=== PATIENT | female | born 1945 | race Two or more races ===

== ENCOUNTER 2018-03-09 11:06 | Emergency (ER) | payer SELFPAY ==
--- NOTE | 2018-03-09 11:38 | ED ---
Back Pain - History of Current Complaint Chief Complaint: EDBackInjuryPain Stated Complaint: FLANK PAIN Time Seen by Provider: 03/09/18 11:34 Pain Intensity: 0 PMH/Surg Hx/FS Hx/Imm Hx Infectious Disease History: No Infectious Disease History: Denies: Traveled Outside the [place] in Last 30 Days Physical Exam Vital Signs On Initial Exam: Initial Vitals Temp Pulse Resp BP Pulse Ox 98 F 88 16 142/67 99 03/09/18 11:10 03/09/18 11:10 03/09/18 11:10 03/09/18 11:10 03/09/18 11:10 Diagnostics - Vital Signs Vital Signs Temp Pulse Resp BP Pulse Ox 03/09/18 11:10 98 F 88 16 142/67 99 - Laboratory Lab Statement: Any lab studies that have been ordered have been reviewed, and results considered in the medical decision making process. Discharge - Discharge Plan Referrals: No Primary Care Phys,NOPCP [Primary Care Provider] - - Attestation Statements Document Initiated by Scribe: Yes
--- NOTE | 2018-03-09 11:43 | ED ---
Lower Extremity - HPI Summary HPI Summary: The pt is a 73 y/o female presenting to [facility] c/o of LLE pain since 1 week ago. The pt who only speaks Persian is a accompanied by her son who also has a significant language barrier. She notes weakness but denies neck pain, abd pain , falls, recent injuries and dysuria. She took Tylenol to no relief. The pain is aggravated by walking. - History of Current Complaint Chief Complaint: EDBackInjuryPain Stated Complaint: FLANK PAIN Time Seen by Provider: 03/09/18 11:34 Hx Obtained From: Patient, Family/Dispensing Optician - Son Onset of Pain: Days - 1 week Onset/Duration: Weeks - 1 week Severity Currently: None Pain Intensity: 0 Pain Scale Used: 0-10 Numeric Location: Is Discrete @ - LLE , L hip Associated Signs And Symptoms: Negative: Abdominal Pain Aggravating Factor(s): Ambulation - Allergies/Home Medications Allergies/Adverse Reactions: Allergies Allergy/AdvReac Type Severity Reaction Status Date / Time No Known Allergies Allergy Verified 03/09/18 11:59 PMH/Surg Hx/FS Hx/Imm Hx Previously Healthy: Yes Endocrine/Hematology History: Denies: Hx Diabetes Cardiovascular History: Denies: Hx Hypertension Opthamlomology History: Denies: Hx Legally Blind EENT History: Denies: Hx Deafness - Cancer History Cancer Type, Location and Year: None reported - Surgical History Surgery Procedure, Year, and Place: None reported Infectious Disease History: No Infectious Disease History: Denies: Traveled Outside the [place] in Last 30 Days - Family History Known Family History: Positive: None - Social History Occupation: Retired Lives: With Family Alcohol Use: None Hx Substance Use: No Substance Use Type: Reports: None Review of Systems Constitutional: Other - Positive: Weakness ENT: Negative - Neck pain Negative: Abdominal Pain Negative: dysuria Musculoskeletal: Negative - Falls, recent injuries Positive: Other - Positive: LLE pain All Other Systems Reviewed And Are Negative: Yes Physical Exam - Summary Physical Exam Summary: Appearance: Well-appearing, Well-nourished, lying in bed comfortably Skin: Warm, dry, no obvious rash Eyes: sclera anicteric, no conjunctival pallor ENT: mucous membranes moist, pharynx appears normal Neck: Supple, nontender Respiratory: Clear to auscultation, no signs of respiratory distress Cardiovascular: Normal S1, S2. No murmurs. Normal distal pulses in tibial and radial bilaterally. Abdomen: Soft, nontender, normal active bowel sounds present Musculoskeletal: Strength/ROM Intact; On palpation, the patient notes pain from L lower back radiating to L gluteus and to the L thigh Neurological: A&Ox3, awake and alert, mentation is normal, speech is fluent and appropriate Psychiatric: affect is normal, does not appear anxious or depressed Triage Information Reviewed: Yes Vital Signs On Initial Exam: Initial Vitals Temp Pulse Resp BP Pulse Ox 98 F 88 16 142/67 99 03/09/18 11:10 03/09/18 11:10 03/09/18 11:10 03/09/18 11:10 03/09/18 11:10 Vital Signs Reviewed: Yes Diagnostics - Vital Signs Vital Signs Temp Pulse Resp BP Pulse Ox 03/09/18 11:10 98 F 88 16 142/67 99 - Laboratory Result Diagrams: 03/09/18 12:01 03/09/18 12:01 Lab Statement: Any lab studies that have been ordered have been reviewed, and results considered in the medical decision making process. - Radiology Lumbar Spine X-ray Radiology Interpretation Completed By: Radiologist - IMPRESSION: 1. OSTEOPENIA. 2. DEGENERATIVE DISC DISEASE MOST PRONOUNCED AT THE THORACOLUMBAR JUNCTION WITH OSTEOARTHRITIS MOST PRONOUNCED ALONG THE LOWER LUMBAR SPINE The ED physician reviewed this radiology report. Hip/Pelvis X-ray Radiology Interpretation Completed By: Radiologist - IMPRESSION: OSTEOARTHRITIS. NO ACUTE OSSEOUS INJURY. IF SYMPTOMS PERSIST, RECOMMEND REPEAT IMAGING. The ED physician reviewed this radiology report. Lower Extremity Course/Dx - Course Course Of Treatment: This is an elderly woman who comes in with complaints of pain suggestive of back but also possible hip disease. X-rays show signs of osteoarthritis in both the lumbar spine and hip. Routine lab work including sedimentation rate are negative. I considered a trial of prednisone with her diabetes I don't think that's really a good option at this point. She can take Motrin for now, and I recommended she see an orthopedic surgeon to see if they can be sorted out whether her pain is mostly from her hip or her back in if she might benefit from surgery. - Diagnoses Provider Diagnoses: Osteoarthritis Discharge - Sign-Out/Discharge Documenting (check all that apply): Patient Departure - Discharge Plan Condition: Good Disposition: HOME Prescriptions: Naproxen [Naproxen 375 mg tab] 375 mg PO BID #20 tablet Patient Education Materials: Osteoarthritis (ED) Print Language: NORTH KOREAN Referrals: Elías Camarillo MD [Medical Doctor] - 3 Days Additional Instructions: Return to ED for any new or worsening symptoms - Billing Disposition and Condition Condition: GOOD Disposition: Home - Attestation Statements Document Initiated by Scribe: Yes Documenting Scribe: Ariane Vicente Provider For Whom Scribe is Documenting (Include Credential): Dr. Boaz Hameed MD Scribe Attestation: Ariane Salmeron, scribed for Dr. Boaz Hameed MD on 03/10/18 at 1445. Scribe Documentation Reviewed: Yes Provider Attestation: The documentation as recorded by the Ariane welsh accurately reflects the service I personally performed and the decisions made by me, Dr. Boaz Hameed MD
[2018-03-09] MEDS ORDERED: Ibuprofen TAB* 400 MG PO ONE (11:45)
[2018-03-09 12:21] LABS: ABS Basophils 0.1 10^3/ul (0-0.2); ABS Eosinophils 0.1 10^3/ul (0-0.6); ABS Lymphocytes 1.6 10^3/ul (1.0-4.8); ABS Monocytes 0.5 10^3/ul (0-0.8); ABS Neutrophils 5.3 10^3/ul (1.5-7.7); ABS Nucleated RBC 0 10^3/ul; Eosinophil % 1.4 % (0-6); Hematocrit 37 % (35-47); Hemoglobin 12.8 g/dl (12.0-16.0); Lymphocyte % 20.9 % (25-47); Mean Corpuscular HGB Conc 34 g/dl (31-36); Mean Corpuscular Hemoglobin 32 pg (27-31); Mean Corpuscular Volume 93 fL (80-97); Mean Platelet Volume 8.3 um3 (7.4-10.4); Nucleated Red Blood Cells % 0.1; Platelet Count 208 10^3/ul (150-450); Red Cell Distribution Width 13 % (10.5-15); White Blood Count 7.6 10^3/ul (3.5-10.8)
[2018-03-09 12:37] LABS: EGFR Non-African American 117.6 (>60)
[2018-03-09 12:39] LABS: Urine Appearance Cloudy; Urine Blood Negative (Negative); Urine Color Yellow; Urine Ketones Negative (Negative); Urine Protein Negative (Negative); Urine Red Blood Cell 2+(6-10/hpf) (Absent); Urine Specific Gravity 1.014 (1.010-1.030); Urine Urobilinogen Negative (Negative); Urine White Blood Cell 1+(6-10/hpf) (Absent)
--- NOTE | 2018-03-09 13:08 | RAD ---
HISTORY: pain, left hip pain COMPARISONS: None VIEWS: 3 , Frontal view of the pelvis with frontal and frog-leg views of the left hip FINDINGS: BONE DENSITY: Normal. BONES: There is no displaced fracture. 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 ALIGNMENT: There is no dislocation. SOFT TISSUES: Unremarkable. OTHER FINDINGS: Degenerative changes are noted of the spine. IMPRESSION: OSTEOARTHRITIS. NO ACUTE OSSEOUS INJURY. IF SYMPTOMS PERSIST, RECOMMEND REPEAT IMAGING.
--- NOTE | 2018-03-09 13:09 | RAD ---
HISTORY: pain, low back pain COMPARISONS: None VIEWS: 3 , Frontal, lateral, and coned-down lateral sacral views of the lumbar spine FINDINGS: ALIGNMENT: There is trace central spaces of L5 on S1. VERTEBRAL BODIES: There is diffuse osteopenia. The vertebral bodies are preserved in height. There is anterolateral marginal osteophyte formation most pronounced at T11-T12 with sclerotic reactive endplate changes. JOINTS: There is facet osteoarthritis most pronounced at L4-L5 and L5-S1. INTERVERTEBRAL DISCS: There is diffuse loss of intervertebral disc height. SOFT TISSUE: Unremarkable. OTHER: The pelvis is unremarkable. The lung bases are clear. IMPRESSION: 1. OSTEOPENIA. 2. DEGENERATIVE DISC DISEASE MOST PRONOUNCED AT THE THORACOLUMBAR JUNCTION WITH OSTEOARTHRITIS MOST PRONOUNCED ALONG THE LOWER LUMBAR SPINE
[2018-03-09 14:22] VITALS: BP 114/55
== END 2018-03-09 14:21 | disposition home or self-care (01) ==
LOC: ED 11:06
DX: M19.90 Unspecified osteoarthritis, unspecified site (principal)
CPT/HCPCS: 36415; 72100; 80053; 81003; 81015; 85025; 85652; 87086; 99281; A9270-GY

== ENCOUNTER 2023-06-30 10:02 | Observation (INO) ==
[~2023-06-30 10:02] MED LIST: Buffered Lidocaine 1% SYRIN 1 ml INTRADERM ONE; HYDROmorphone 1 MG/1 ML SYRINGE IV PRN; Lactated Ringers 1000 ml BAG 1,000 ML IV SCH; Metoclopramide 5 MG/ML VIAL (10 mg) IV PRN; Naloxone 0.4 mg VIAL 0.4 mg/ml 1 ml VIAL IV PRN; Ondansetron 4 mg VIAL 2 MG/ML 2 ml VIAL IV PRN; fentaNYL 100 mcg/2 ml 50 MCG/ML VIAL IV PRN
[2023-06-30 10:50] LABS: Rapid COVID-19 Molecular Undetected (Undetected)
[2023-06-30] MEDS ORDERED: ceFAZolin 2 GM PREMIX 2 GM/50 ML BAG ONE (10:55)
[2023-06-30] MEDS ORDERED: Chlorhexidine MOUTHWASH 0.12% 15 ML UDC ONE (10:55)
[2023-06-30] MEDS ORDERED: Ondansetron 4 mg VIAL 2 MG/ML 2 ml VIAL IV PRN ×2 (11:51→15:57)
[2023-06-30] MEDS ORDERED: fentaNYL 100 mcg/2 ml 50 MCG/ML VIAL IV PRN (11:51)
[2023-06-30] MEDS ORDERED: Metoclopramide 5 MG/ML VIAL (10 mg) IV PRN (11:51)
[2023-06-30] MEDS ORDERED: Naloxone 0.4 mg VIAL 0.4 mg/ml 1 ml VIAL IV PRN (11:51)
[2023-06-30] MEDS ORDERED: Buffered Lidocaine 1% SYRIN 1 ml INTRADERM ONE ×2 (11:51→15:10)
[2023-06-30] MEDS ORDERED: Lactated Ringers 1000 ml BAG 1,000 ML IV SCH ×3 (12:00→16:00)
[2023-06-30] MEDS ORDERED: fentaNYL 100 mcg/2 ml 50 MCG/ML VIAL ONE ×2 (12:30→16:30)
[2023-06-30] MEDS ORDERED: Rocuronium 50 mg VIAL 10 mg/ml 5 ml VIAL (50 mg) ONE ×2 (12:30→14:19)
[2023-06-30] MEDS ORDERED: Ondansetron 4 mg VIAL 2 MG/ML 2 ml VIAL ONE (12:30)
[2023-06-30] MEDS ORDERED: Lidocaine 2% PF 5 ML VIAL ONE (12:30)
[2023-06-30] MEDS ORDERED: Dexamethasone IV 4 MG/ML VIAL 1 ml VIAL ONE ×2 (12:30)
[2023-06-30] MEDS ORDERED: Propofol 10 MG/ML 20 ML BTL ONE (12:30)
[2023-06-30] MEDS ORDERED: Lidocaine 1% w EPI 1:100,000 MDV 20 ML VIAL ONE (12:39)
[2023-06-30] MEDS ORDERED: Gelfoam Sponge SIZE 100 SPONGE ONE (12:40)
[2023-06-30] MEDS ORDERED: ceFAZolin VIAL VIAL ONE (12:40)
[2023-06-30] MEDS ORDERED: Thrombin 5,000 UNITS(BOVINE) for Ultrasound Guided Pseudoaneursym ONE (12:40)
[2023-06-30] MEDS ORDERED: Midazolam 2 mg/2 ml VIAL 1 mg/ml 2 ml VIAL (2 mg) ONE (12:41)
[2023-06-30] MEDS ORDERED: HYDROmorphone 0.5 MG/0.5 ML SYRINGE ONE (14:28)
[2023-06-30] MEDS ORDERED: Magnesium Hydroxide LIQ 30 ML UDC PO PRN (15:57)
[2023-06-30] MEDS ORDERED: Phenol 1.4% Throat Spray BTL MT PRN (15:57)
[2023-06-30] MEDS ORDERED: Morphine 2 MG/ML SYRINGE IV PRN (15:57)
[2023-06-30] MEDS ORDERED: HYDROcodone/ACETAMIN 5/325 mg TAB PO PRN ×2 (15:57)
[2023-06-30] MEDS ORDERED: Dextran 70/Hypromellose Tears Eye Drops 15 ml BTL (for Artificials Tears) BOTH EYES PRN (15:57)
[2023-06-30] MEDS ORDERED: Calcium Carb (TUMS) 500 mg CHEW TAB PO PRN (15:57)
[2023-06-30] MEDS ORDERED: Senna TAB 8.6 mg TAB PO PRN (15:57)
[2023-06-30] MEDS ORDERED: Benzocaine/Menthol LOZ MT PRN (15:57)
[2023-06-30] MEDS ORDERED: Insulin GLARGINE 100 un/ml 10 ml VIAL SUBCUT SCH (21:00)
[2023-07-01 10:04] VITALS: BP 112/55
== END 2023-07-01 14:08 | disposition home or self-care (01) ==
LOC: SSU 10:02 → OR 10:02
PROVIDERS: ADMIT Neurological Surgery; ATTEND Neurological Surgery